=== PATIENT | male | born 1975 ===

== ENCOUNTER 2017-10-08 11:46 | Emergency (ER) | payer OTHER ==
[2017-10-08 11:51] VITALS: BMI 33.5
[2017-10-08 11:54] VITALS: BP 134/94; PULSE 111; RESP 16; TEMP 98.2; O2SAT 97
--- NOTE | 2017-10-08 12:32 | ED PDOC ---
HPI: Wound Care - HPI Time Seen by Provider: 10/08/17 12:23 Chief Complaint (Nursing): Wound Check Chief Complaint (Provider): Abscess History Per: Patient Exam Limitations: no limitations Onset/Duration Of Symptoms: Days Current Symptoms Are (Timing): Still Present Location Of Injury: Right: Buttock Quality Of Symptoms: Painful Severity: Moderate Additional History Per: Patient Additional Complaint(s): 41 y/o male complaining of an area of swelling and tenderness on the right buttock. The area is painful. Previously he was placed on Keflex for this, which he has been taking. No fever, chills, streaking, or drainage from the site. No other complaints at this time. Past Medical History Vital Signs: Last Vital Signs Temp 98.2 F 10/08/17 11:51 Pulse 111 H 10/08/17 11:51 Resp 16 10/08/17 11:51 BP 134/94 H 10/08/17 11:51 Pulse Ox 97 10/08/17 11:51 - Family History Family History: States: Unknown Family Hx - Immunization History Hx Tetanus Toxoid Vaccination: No Hx Influenza Vaccination: No Hx Pneumococcal Vaccination: No - Home Medications Home Medications: Ambulatory Orders Medication Instructions Recorded Cyclobenzaprine [Cyclobenzaprine 10 mg PO HS #10 tab 01/19/17 HCl] Naproxen 500 mg PO BID #20 tab 01/19/17 Clindamycin [Cleocin] 300 mg PO QID #40 cap 10/08/17 - Allergies Allergies/Adverse Reactions: Allergies Allergy/AdvReac Type Severity Reaction Status Date / Time No Known Allergies Allergy Verified 01/19/17 19:22 Review of Systems Constitutional: Negative for: Fever, Chills Skin: Positive for: Lesions Physical Exam - Physical Exam Appears: Positive for: Well, Non-toxic Skin: Negative for: Normal Color ( Abscess) Respiratory: Negative for: Wheezing, Respiratory Distress Extremity: Positive for: Normal ROM Neurologic/Psych: Positive for: Alert, Oriented - ECG O2 Sat by Pulse Oximetry: 97 Medical Decision Making Medical Decision Making: Time: 12:25pm Initial impression: Abscess Initial plan: I&D See procedure note. Wound care instructions given. Work note given as he sits for long periods of time for work. Rx for Clindamycin given, stop Keflex. All questions answered. ~ Scribe Attestation: Documented by~Jennifer Chavez, acting as a scribe for SHUKRI Doe. Provider Scribe Attestation: All medical record entries made by the Scribe were at my direction and personally dictated by me. I have reviewed the chart and agree that the record accurately reflects my personal performance of the history, physical exam, medical decision making, and the department course for this patient. I have also personally directed, reviewed, and agree with the discharge instructions and disposition. Disposition - Clinical Impression Clinical Impression: Abscess - Patient ED Disposition Is Patient to be Admitted: No Doctor Will See Patient In The: Office Counseled Patient/Family Regarding: Diagnosis, Need For Followup - Disposition Disposition: Routine/Home Disposition Time: 12:56 Condition: STABLE Prescriptions: Clindamycin [Cleocin] 300 mg PO QID #40 cap Instructions: Abscess (ED) Forms: [employer] (Turkmen), [facility] ED School/Work Excuse Incision and Drainage - Time Time Performed: 12:45 - Time Out Time Out: Side verified, Site verified, Patient ID confirmed - Consent obtained Consent obtained: Verbal - Performed by Performed by: Mid-level Provider - Indications Indications: Cutaneous abscess - Contraindications Contraindications: None - Location Location: Right, Skin abscess - Dimensions Dimensions Length cm: 1cm Dimensions width cm: 1cm - Anesthetic Anesthetic: Other (Alcohol) - Procedure Procedure: Usual prep and drape (an 18 guage needle was used to open the area of fluctuance ) - Drained Drained: ml pus (1) - Post-procedure Post procedure: Dressed - Complications Complications: None - Patient tolerated procedure Patient tolerated procedure: Well
== END 2017-10-08 12:54 | disposition home or self-care (01) ==
LOC: H.ER 11:46
DX: L02.31 Cutaneous abscess of buttock (principal)